=== PATIENT | male | born 1985 | race Caucasian/White ===

== ENCOUNTER 2017-06-14 22:22 | Emergency (ER) | payer SELFPAY ==
[~2017-06-14] VITALS: Ht 172.7 cm; Wt 65.8 kg
--- NOTE | 2017-06-14 22:45 | NUR ---
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
[2017-06-14] MEDS ORDERED: LORAZEPAM INJ 2 MG/ML VIAL IVP ONE (23:00)
[2017-06-14] MEDS ORDERED: OLANZAPINE 10 MG VIAL IM ONE ×2 (23:00→23:16)
[2017-06-14] MEDS ORDERED: LORAZEPAM INJ 2 MG/ML VIAL ONE (23:16)
[2017-06-14] MEDS ORDERED: LORAZEPAM INJ 2 MG/ML VIAL IM ONE (23:30)
--- NOTE | 2017-06-15 00:27 | NUR ---
BLOOD SAMPLE DRAWN SENT TO LAB
--- NOTE | 2017-06-15 00:28 | NUR ---
REPORT GIVEN TO CHARGE NURSE.
--- NOTE | 2017-06-15 00:33 | NUR ---
REMOVED LOWER AND LEFT UPPER EXTREMITY RESTRAINT. PATIENT IS RESTING IN ER BED, NO DISTRESS NOTED. PMS DISTAL TO RIGHT UPPER EXTREMITY WNL. WILL CONTINUE TO MONITOR
[2017-06-15 00:38] LABS: BASOPHILS # (AUTO) 0.1 /CMM (0.0-0.2); BASOPHILS % (AUTO) 0.7 % (0.0-2.0); EOSINOPHILS # (AUTO) 0.7 /CMM (0.0-0.7); EOSINOPHILS % (AUTO) 7.5 % (0.0-6.0); HEMATOCRIT 37 % (39-51); HEMOGLOBIN 12.3 g/dL (13.5-17.5); LYMPHOCYTES # (AUTO) 2.4 /CMM (0.8-4.8); LYMPHOCYTES % (AUTO) 25.9 % (20.0-44.0); MEAN CORPUSCULAR HEMOGLOBIN 30 PG (26.0-33.0); MEAN CORPUSCULAR HGB CONC 33 g/dl (31.0-36.0); MEAN CORPUSCULAR VOLUME 91 fL (80-96); MONOCYTES # (AUTO) 1.1 /CMM (0.1-1.30); MONOCYTES % (AUTO) 11.7 % (2.0-12.0); NEUTROPHILS # (AUTO) 4.9 /CMM (1.8-8.9); NEUTROPHILS % (AUTO) 54.2 % (43.0-81.0); PLATELET COUNT (AUTO) 374 /CMM (150-450); RDW COEFFICIENT OF VARIATION 12.8 (11.5-15.0); WHITE BLOOD COUNT (AUTO) 9.1 K/uL (4.3-11.0)
--- NOTE | 2017-06-15 00:40 | NUR ---
RECEIVED REPORT FROM CALVIN. WILL CONTINUE TO MONITOR FOR ANY CHANGES.
[2017-06-15 00:49] LABS: CALCIUM, SERUM 8.6 mg/dL (8.5-10.1); CARBON DIOXIDE 28 mmol/L (21-32); CHLORIDE 103 mmol/L (98-107); CREATININE 0.6 mg/dL (0.6-1.3); GLUCOSE 122 mg/dL (74-106); SODIUM SERUM 141 mmol/L (136-145); UREA NITROGEN, BLOOD 13 mg/dL (7-18)
[2017-06-15 00:53] LABS: POTASSIUM 2.8 mmol/L (3.5-5.1)
[2017-06-15 01:03] LABS: ALANINE AMINOTRANSFERASE 30 U/L (12-78); ALBUMIN 3.3 g/dL (3.4-5.0); ALCOHOL, BLOOD < 3 mg/dL (0-0); ALKALINE PHOSPHATASE 67 U/L (46-116); ASPARTATE AMINOTRANSFERASE 28 U/L (15-37); BILIRUBIN,DIRECT 0.2 mg/dL (0.0-0.2); BILIRUBIN,TOTAL 0.6 mg/dL (0.2-1.0); TOTAL PROTEIN, SERUM 7.2 g/dL (6.4-8.2)
[2017-06-15 01:04] LABS: ACETAMINOPHEN 0 ug/ml (10-30)
[2017-06-15] MEDS ORDERED: POTASSIUM CL. PREMIX PERIPHER. 50 ML IV SCH (01:30)
--- NOTE | 2017-06-15 03:00 | NUR ---
URINCE COLLECTED VIA PITTS
[2017-06-15 03:53] LABS: APPEARANCE,URINE CLEAR (CLEAR); BILIRUBIN,URINE NEGATIVE (NEGATIVE); BLOOD, URINE NEGATIVE Ery/uL (NEGATIVE); COLOR,URINE DARK YELLO (YELLOW); KETONES,URINE NEGATIVE (NEGATIVE); LEUKOCYTE ESTERASE ,URINE NEGATIVE (NEGATIVE); NITRITE, URINE NEGATIVE (NEGATIVE); PROTEIN,URINE NEGATIVE (NEGATIVE); UGLUCOSE NEGATIVE (NEGATIVE); UROBILINOGEN,URINE 0.2 EU/dL (0.2)
[2017-06-15] MEDS ORDERED: Magnesium 1GM/D5W 100ML PREMIX 200 ML IV ONE (04:40)
[2017-06-15] MEDS: Magnesium 1GM/D5W 100ML PREMIX 100 ML IV SCH ×2 (04:53→06:21)
--- NOTE | 2017-06-15 04:54 | NUR ---
18G RIGHT AC IV STARTED. MEDICATED PT ORDERED
--- NOTE | 2017-06-15 06:40 | NUR ---
PATIENT IS RESTING IN ER BED, NO DISTRESS NOTED, SKIN WARM AND DRY, RESP EVEN AND UNLABORED. PATIENT IS ON [employer], WILL CONTINUE TO MONITOR
[2017-06-15] MEDS ORDERED: POTASSIUM CHLORIDE 20 MEQ TAB.PRT.SR PO ONE ×2 (07:30→09:55)
[2017-06-15 15:00] VITALS: BP 114/68
--- NOTE | 2017-06-15 15:02 | NUR ---
IV removed. Catheter intact and site benign. Pressure and 4x4 applied to site. No bleeding noted. Patient discharged to home in stable condition. Written and verbal after care instructions given. Patient verbalizes understanding of instruction.
== END 2017-06-15 15:01 | disposition home or self-care (01) ==
LOC: ER 22:24
DX: F15.10 Other stimulant abuse, uncomplicated (principal); F29 Unspecified psychosis not due to a substance or known physiological condition; E87.6 Hypokalemia; Z59.0 Homelessness
CPT/HCPCS: 36415; 51701; 70450; 72125; 80048; 80076; 80305; 80329; 81001; 83735; 85025; 93005; 96365; 96366; 96372; 99285; A4606; G0480 ×2; J2060; J3475; J3490; Z7610; 81000-TC